=== PATIENT | female | born 1970 | race Caucasian/White ===

== ENCOUNTER 2016-06-10 16:15 | Outpatient (CLI) | payer BC | END 2016-06-10 16:16 | LOC: LABRHC 16:15 | PROVIDERS: ATTEND Family Medicine | DX: Z12.4 Encounter for screening for malignant neoplasm of cervix (principal); Z01.419 Encounter for gynecological examination (general) (routine) without abnormal findings | CPT/HCPCS: 88148; G0143 ==

== ENCOUNTER 2017-06-12 10:09 | Outpatient (CLI) | payer OTHER | END 2017-06-12 10:10 | LOC: OUT 10:09 | PROVIDERS: ATTEND Colon & Rectal Surgery | DX: K64.9 Unspecified hemorrhoids (principal) | CPT/HCPCS: 99213 ==

== ENCOUNTER 2019-03-16 13:55 | Outpatient (CLI) | payer OTHER | END 2019-03-16 14:00 | LOC: LAB 13:55 | PROVIDERS: ATTEND Family Medicine | DX: Z13.29 Encounter for screening for other suspected endocrine disorder (principal); Z12.4 Encounter for screening for malignant neoplasm of cervix | CPT/HCPCS: 36415; 84443; 88148; G0143 ==

== ENCOUNTER 2019-05-03 15:46 | Outpatient (CLI) | payer OTHER | END 2019-05-03 15:51 | LOC: LAB 15:46 | PROVIDERS: ATTEND Family Medicine | DX: E03.9 Hypothyroidism, unspecified (principal) | CPT/HCPCS: 36415; 84443 ==